=== PATIENT | male | born 1945 | race Caucasian/White ===

== ENCOUNTER → 2020-03-23 | Outpatient (CLI) | payer OTHER ==
--- NOTE | 2020-03-23 11:46 | 2DMMODE ---
[place] [address] 2 D/M-MODE ECHOCARDIOGRAM Name: SALLY DEVINE Room: [facility]#: [id number] Admission: 03/23/20 Attend Phys: Ant Harris MD Discharge: Date of : 45 Date of Service: 03/23/20 1146 Report #: [id number] THIS REPORT FOR: cc: FAM - No family physician/PCP CHETAN - No family physician/PCP Sally Jauregui MD [facility] ~ APPROVED REPORT Study performed: 03/23/2020 09:48:38 EXAM: Comprehensive 2D, Doppler, and color-flow Echocardiogram Patient Location: Out-Patient BSA: 2.17 HR: 60 bpm BP: 126/72 mmHg Other Information Study Quality: Good Indications Atrial Fibrillation 2D Dimensions IVSd: 11.77 (7-11mm) LVOT Diam: 20.24 (18-24mm) LVDd: 49.16 mm PWd: 11.63 (7-11mm) Ascending Ao: 34.44 (22-36mm) LVDs: 24.71 (25-40mm) Aortic Root: 28.89 mm Volumes Left Atrial Volume (Systole) LA ESV Index: 17.10 mL/m2 Aortic Valve AoV Peak Bladimir.: 1.12 m/s AO Peak Gr.: 5.06 mmHg LVOT Max P.66 mmHg AO Mean Gr.: 2.56 mmHg LVOT Mean P.98 mmHg LVOT Max V: 1.08 m/s AO V2 VTI: 23.08 cm LVOT Mean V: 0.63 m/s JOSÉ MIGUEL (VTI): 3.35 cm2 LVOT V1 VTI: 24.00 cm Mitral Valve E/A Ratio: 1.17 [place] [address] 2 D/M-MODE ECHOCARDIOGRAM Name: SALLY DEVINE Room: [facility]#: [id number] Admission: 03/23/20 Attend Phys: Ant Harris MD Discharge: Date of : 45 Date of Service: 03/23/20 1146 Report #: [id number] MV Decel. Time: 188.55 ms MV E Max Bladimir.: 0.57 m/s MV PHT: 54.68 ms MVA (PHT): 4.02 cm2 TDI E/Lateral E': 5.70 E/Medial E': 6.33 Medial E' Bladimir.: 0.09 m/s Lateral E' Bladimir.: 0.10 m/s Pulmonary Valve PV Peak Bladimir.: 0.86 m/s PV Peak Gr.: 2.95 mmHg Tricuspid Valve RAP Estimate: 5.00 mmHg TR Peak Gr.: 16.20 mmHg RVSP: 21.20 mmHg PA Pressure: 21.20 mmHg Left Ventricle The left ventricle is normal size. There is normal LV segmental wall motion. There is normal left ventricular wall thickness. Left ventricular systolic function is normal. The left ventricular ejection fraction is within the normal range. LVEF is 55-60%. The left ventricular diastolic function is normal. Right Ventricle The right ventricle is normal size. The right ventricular systolic function is normal. Atria The left atrium size is normal. The right atrium size is normal. Aortic Valve The aortic valve is normal in structure. No aortic regurgitation is present. There is no aortic valvular stenosis. Mitral Valve The mitral valve is normal in structure. There is no mitral valve regurgitation noted. No evidence of mitral valve stenosis. Tricuspid Valve The tricuspid valve is normal in structure. Mild tricuspid regurgitation[place] [address] 2 D/M-MODE ECHOCARDIOGRAM Name: SALLY DEVINE Room: [facility]#: [id number] Admission: 03/23/20 Attend Phys: Ant Harris MD Discharge: Date of : 45 Date of Service: 03/23/20 1146 Report #: [id number] The pulmonary valve is normal in structure. There is no pulmonic valvular regurgitation. Great Vessels The aortic root is normal in size. IVC is normal in size and collapses >50% with inspiration. Pericardium There is no pericardial effusion. <Conclusion> The left ventricle is normal size. There is normal left ventricular wall thickness. Left ventricular systolic function is normal. The left ventricular ejection fraction is within the normal range. LVEF is 55-60%. The left ventricular diastolic function is normal. The right ventricle is normal size. The left atrium size is normal. The aortic valve is normal in structure. The mitral valve is normal in structure. The tricuspid valve is normal in structure. Mild tricuspid regurgitation. IVC is normal in size and collapses >50% with inspiration. There is no pericardial effusion. There is normal LV segmental wall motion. <ELECTRONICALLY SIGNED> By: Sally Jauregui MD, FACC 03/23/20 1146 1146 1146 Sally Jauregui MD, FACC /INF
== END ==
LOC: M.CRD 09:50
PROVIDERS: ATTEND Orthopaedic Surgery
DX: I07.1 Rheumatic tricuspid insufficiency (principal)